=== PATIENT | male | born 1970 | race Caucasian/White ===

== ENCOUNTER 2021-09-21 01:51 | Emergency (ER) | payer MEDICAID ==
[~2021-09-21] VITALS: Ht 167.6 cm; Wt 91.8 kg
[2021-09-21 01:57] VITALS: BP 141/96
--- NOTE | 2021-09-21 02:00 | NUR ---
PT TO LOBBY.
[2021-09-21] MEDS ORDERED: IBUP-2218 PO (02:34)
[2021-09-21] MEDS ORDERED: CEPH-588 PO (02:34)
[2021-09-21] MEDS ORDERED: cephALEXin 500 MG CAP PO ONE (02:35)
[2021-09-21] MEDS ORDERED: IBUPROFEN 800 MG TAB PO ONE (02:35)
--- NOTE | 2021-09-21 02:45 | NUR ---
9/10 NOSE PAIN XYESTERDAY. INSIDE NOSE INFLAMMED. DENIES DRUG USE. DENEIS TAKING MEDICATION. DENIES HX, RX ADN ALLERGIES
[2021-09-21 02:55] VITALS: BP 141/96
--- NOTE | 2021-09-21 02:55 | NUR ---
Patient discharged with v/s stable. Written and verbal after care instructions given and explained. Patient alert, oriented and verbalized understanding of instructions. Ambulatory with steady gait. All questions addressed prior to discharge. ID band removed. Patient advised to follow up with PMD. Rx of KEFLEX AND IBUPROFEN given. Patient educated on indication of medication including possible reaction and side effects. Opportunity to ask questions provided and answered.
== END 2021-09-21 02:55 | disposition home or self-care (01) ==
LOC: MED 01:51
DX: J34.0 Abscess, furuncle and carbuncle of nose (principal); Z79.1 Long term (current) use of non-steroidal anti-inflammatories (NSAID); Z79.2 Long term (current) use of antibiotics
CPT/HCPCS: 99283